=== PATIENT | male | born 1990 | race Caucasian/White ===

== ENCOUNTER → 2024-04-19 | Outpatient (CLI) | payer OTHER ==
[~2024-04-19] MED LIST: IBUPROFEN200 M2 PO; PREDNISONE20 M1 PO; RELION VEN0.09 MG/Ac IH; ZITHROMAX 250M250 MG PO
== END ==
LOC: RAD 11:19
DX: S62.522A Displaced fracture of distal phalanx of left thumb, initial encounter for closed fracture (principal); X58.XXXA Exposure to other specified factors, initial encounter